=== PATIENT | male | born 1955 | race Caucasian/White ===

== ENCOUNTER 2016-11-15 11:16 | Emergency (ER) | payer OTHER ==
[~2016-11-15] VITALS: Ht 175.3 cm; Wt 82.0 kg
[~2016-11-15 11:16] MED LIST: CEPH500C3 PO; CLIN30GE TOP; FLU SHOT; LORA10TA7 PO; NAPR500 PO; TAB-TAB PO; [UNRECOGNIZED DRUG - CODE] PO; [UNRECOGNIZED DRUG - OTHER] PO; [UNRECOGNIZED DRUG - SUPPLY]
[2016-11-15 11:18] VITALS: BP 112/80; PULSE 53; RESP 15; TEMP 98; O2SAT 99
[2016-11-15] MEDS ORDERED: RED1CAP4 (11:42)
[2016-11-15] MEDS ORDERED: ONCETAB7 (11:42)
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
[2016-11-15] MEDS ORDERED: KETOROLAC TROMETHAMINE 60 MG/2 ML (IM) VIAL IM ONE (11:45)
[2016-11-15] MEDS ORDERED: ORPHENADRINE INJ 60 MG/2 ML AMP IM ONE (11:45)
--- NOTE | 2016-11-15 12:25 | RADRPT ---
EXAM DATE/TIME: 11/15/2016 11:52 [facility] COMPARISON: No previous studies available for comparison. INDICATIONS : Lower left side chest and rib pain. MEDICAL HISTORY : None. SURGICAL HISTORY : None. ENCOUNTER: Initial ACUITY: 2 weeks PAIN SCORE: 8/10 LOCATION: Left lower chest FINDINGS: The lungs are clear without infiltrate, nodule, or mass. There is no appreciable pleural effusion fo r technique. Heart and mediastinum are unremarkable. CONCLUSION: No acute cardiopulmonary disease. Lucas De Luna MD on November 15, 2016 at 12:23 Board Certified Radiologist. This report was verified electronically.
[2016-11-15] MEDS ORDERED: ROBA750T PO (12:34)
[2016-11-15] MEDS ORDERED: IBUP800T23 PO (12:34)
== END 2016-11-15 12:42 | disposition home or self-care (01) ==
LOC: NEPD 11:16
DX: S29.012A Strain of muscle and tendon of back wall of thorax, initial encounter (principal); Z79.899 Other long term (current) drug therapy; V18.4XXA Pedal cycle driver injured in noncollision transport accident in traffic accident, initial encounter
CPT/HCPCS: 71010; 96372; 99284; J1885; J2360